=== PATIENT | female | born 1980 | race Caucasian/White ===

== ENCOUNTER 2016-07-23 09:19 | Emergency (ER) | payer OTHER ==
[~2016-07-23] VITALS: Ht 162.6 cm; Wt 119.3 kg
[~2016-07-23 09:19] MED LIST: AMLODIPINE BESYL5 MG PO; COZAAR100 MG PO; HYGROTON25 MG PO; IMITREX25 MG PO; KEFLEX500 MG PO; LABETALOL HCL200 MG PO; MEDROL DOSEPAK4 MG PO; NITROFURANTOIN100 MG PO; PERCOCET 5/31 TABLET PO; PREDNISONE20 MG PO; PROMETHAZINE HC25 M1 PO; REGLAN5 MG PO; SUMATRIPTAN SUC50 MG PO; TOPAMAX100 MG PO; TYLENOL EXTRA500 MG PO; VICODIN 5-3001 EACH PO; ZOFRAN ODT8 MG PO; ZOFRAN4 MG PO
[2016-07-23 10:11] LABS: EOSINOPHIL (%) 3.1 % (0-5); EOSINOPHIL COUNT 0.3 K/uL (0-0.3); HEMATOCRIT 39.9 % (36.0-46.0); IMMATURE GRANULOCYTE (%) 0.2 % (0.0-0.7); IMMATURE GRANULOCYTE COUNT 0.2 K/uL; LYMPHOCYTE COUNT 3.1 K/uL (1.0-2.8); MCHC 34.8 G/DL (30.0-36.0); MCV 86.2 FL (83-99); MEAN PLAT.VOLUME 9.5 uM^3 (9.5-12.4); MONOCYTE (%) 5.4 % (3-12); MONOCYTE COUNT 0.6 K/uL (0-0.8); NEUTROPHIL (%) 62.8 % (45-76); NEUTROPHIL COUNT 6.9 K/uL (1.8-6.4); PLATELET COUNT 384 K/uL (156-360); RBC DIS.WIDTH-CV 12.8 % (11.8-14.6); RBC DIS.WIDTH-SD 38.8 % (39-53); RED BLOOD COUNT 4.63 M/uL (3.80-5.20)
[2016-07-23 11:03] LABS: CHLORIDE 107 mEq/L (99-109); POTASSIUM 3.3 mEq/L (3.7-5.4); SODIUM 139 mEq/L (136-147)
[2016-07-23 11:05] LABS: GLUCOSE 137 mg/dL (70-99)
[2016-07-23 11:07] LABS: ANION GAP 11 MEQ/L (2-14)
[2016-07-23 11:09] LABS: GFR ESTIMATE (CALCULATED) > 59 mL/min/
[2016-07-23 11:10] LABS: UREA NITROGEN (BUN) 9 mg/dL (9-23)
[2016-07-23 11:17] LABS: QUANTITATIVE HCG < 4.0 MIU/ML
[2016-07-23 11:56] LABS: ADD MIUA? YES; BILIRUBIN NEGATIVE; BLOOD MODERATE; GLUCOSE (STRIP) NEGATIVE; KETONES NEGATIVE; LEUKOCYTES NEGATIVE; NITRITE NEGATIVE; PH, URINE 6.5 (5-8); PROTEIN (STRIP) 30; SPECIFIC GRAVITY 1.012 (1.000-1.030); UROBILINOGEN 0.2 MG/DL (0.2-1.0)
[2016-07-23 11:57] LABS: COLOR LT YELLOW ((YELLOW))
[2016-07-23 12:11] LABS: BACTERIA 2+; CASTS NONE SEEN /LPF; CRYSTALS NONE SEEN; EPITHELIAL CELLS 1+; MUCUS NONE SEEN; PATHOLOGICAL CAST NONE SEEN; SMALL ROUND CELL NONE SEEN; UCUL ADDED? YES; YEAST-LIKE CELL NONE SEEN
[2016-07-23] MEDS ORDERED: TYLENOL WITH C1 EACH PO (12:35)
[2016-07-23 12:54] VITALS: BP 158/98
== END 2016-07-23 12:56 | disposition home or self-care (01) ==
LOC: EME 09:19
PROVIDERS: Emergency Medicine
DX: N83.202 Unspecified ovarian cyst, left side (principal); I10 Essential (primary) hypertension; G43.909 Migraine, unspecified, not intractable, without status migrainosus; Z91.14 Patient's other noncompliance with medication regimen; Z87.442 Personal history of urinary calculi; Z87.891 Personal history of nicotine dependence
CPT/HCPCS: 76856; 80048; 81003; 84702; 85025; 87086; 99281; 99285; J1885; J2765; J7030

== ENCOUNTER 2016-10-15 01:32 | Inpatient (IN) | payer OTHER ==
[~2016-10-15] VITALS: Ht 162.6 cm; Wt 113.9 kg
[~2016-10-15 01:32] MED LIST changes: +TYLENOL WITH C1 EACH PO
[2016-10-15 02:16] LABS: HEMATOCRIT 36.2 % (36.0-46.0); MCHC 35.1 G/DL (30.0-36.0); MCV 85.6 FL (83-99); MEAN PLAT.VOLUME 8.8 uM^3 (9.5-12.4); PLATELET COUNT 315 K/uL (156-360); RBC DIS.WIDTH-CV 13.2 % (11.8-14.6); RBC DIS.WIDTH-SD 39.8 % (39-53); RED BLOOD COUNT 4.23 M/uL (3.80-5.20); WHITE BLOOD COUNT 10.1 K/uL (4.1-10.2)
[2016-10-15 02:24] LABS: CHLORIDE 103 mEq/L (99-109); POTASSIUM 2.8 mEq/L (3.7-5.4); SODIUM 137 mEq/L (136-147)
[2016-10-15 02:26] LABS: GLUCOSE 184 mg/dL (70-99)
[2016-10-15 02:27] LABS: ANION GAP 10 MEQ/L (2-14)
[2016-10-15 02:30] LABS: GFR ESTIMATE (CALCULATED) > 59 mL/min/; UREA NITROGEN (BUN) 17 mg/dL (9-23)
[2016-10-15 02:53] LABS: ERTH.SED.RATE 22 MM/HR (0-20)
[2016-10-15 03:00] LABS: TOTAL BILIRUBIN 0.4 mg/dL (0.0-1.0)
[2016-10-15 03:01] LABS: ALKALINE PHOSPHATASE 63 IU/L (3-129)
[2016-10-15 03:03] LABS: DIRECT BILIRUBIN 0.1 mg/dL (0.0-0.3)
[2016-10-15 03:04] LABS: LIPASE 55 U/L (1.0-51.0)
[2016-10-15 03:10] LABS: TROP-I INTERPRETATION NEGATIVE; TROPONIN-I < 0.01 ng/mL (0.0-0.30)
[2016-10-15 04:57] LABS: ADD MIUA? YES; BILIRUBIN NEGATIVE; BLOOD NEGATIVE; COLOR YELLOW ((YELLOW)); GLUCOSE (STRIP) 50; KETONES NEGATIVE; LEUKOCYTES NEGATIVE; NITRITE NEGATIVE; PROTEIN (STRIP) 100; SPECIFIC GRAVITY 1.016 (1.000-1.030); UROBILINOGEN 0.2 MG/DL (0.2-1.0)
[2016-10-15 05:05] LABS: BACTERIA RARE /HPF; EPITHELIAL CELLS 2+ /HPF; MUCUS TRACE /LPF; RED BLOOD CELLS 0-5 /HPF (0-5); UCUL ADDED? NO; WHITE BLOOD CELLS 0-5 /HPF (0-5)
[2016-10-15] MEDS ORDERED: LEXAPRO10 MG PO (05:08)
[2016-10-15] MEDS ORDERED: LOSARTAN POTAS100 MG PO (05:09)
[2016-10-15 05:37] LABS: MAGNESIUM 1.7 mg/dL (1.3-2.7)
[2016-10-15 07:30] VITALS: BP 174/104
[2016-10-15 08:17] LABS: POTASSIUM 3.1 mEq/L (3.7-5.4)
[2016-10-15] MEDS ORDERED: LABETALOL HCL100 MG PO (08:44)
[2016-10-15 10:34] LABS: Estimated Average Glucose 131 mg/dL (70-123); HEMOGLOBIN A1c (GLYCOHEMOGLOB) 6.2 % HGB (Below 5.7)
[2016-10-15 12:00] VITALS: BP 189/105
[2016-10-15 13:22] VITALS: BP 141/62
[2016-10-15 19:15] VITALS: BP 188/98
[2016-10-15 20:51] LABS: POINT-OF-CARE METER ID UU14174216
[2016-10-16 00:05] VITALS: BP 211/105
[2016-10-16 02:25] VITALS: BP 181/105
[2016-10-16 04:55] VITALS: BP 188/105
[2016-10-16 06:42] LABS: HEMATOCRIT 38.6 % (36.0-46.0); MCH 29.4 PG (29.0-34.0); MCHC 33.7 G/DL (30.0-36.0); MCV 87.3 FL (83-99); MEAN PLAT.VOLUME 9.1 uM^3 (9.5-12.4); PLATELET COUNT 363 K/uL (156-360); RBC DIS.WIDTH-CV 13.8 % (11.8-14.6); RBC DIS.WIDTH-SD 42.2 % (39-53); RED BLOOD COUNT 4.42 M/uL (3.80-5.20)
[2016-10-16 06:46] LABS: WHITE BLOOD COUNT 13.9 K/uL (4.1-10.2)
[2016-10-16 07:06] LABS: ANION GAP 12 MEQ/L (2-14); CHLORIDE 105 MEQ/L (99-109); GFR ESTIMATE (CALCULATED) > 59 mL/min/; GLUCOSE 182 mg/dL (70-99); SAMPLE HEMOLYSIS CHECK 0; SAMPLE ICTERIC CHECK 0; SAMPLE LIPEMIA CHECK 0; SODIUM 139 MEQ/L (136-147); UREA NITROGEN (BUN) 13 mg/dL (9-23)
[2016-10-16 07:09] LABS: POTASSIUM 4.1 MEQ/L (3.7-5.4)
[2016-10-16 07:42] LABS: POINT-OF-CARE METER ID UU13113781
[2016-10-16 08:05] VITALS: BP 171/93
[2016-10-16 11:15] VITALS: BP 169/85
[2016-10-16 11:25] LABS: POINT-OF-CARE METER ID UU13113781
[2016-10-16 13:56] VITALS: BP 158/80
[2016-10-16] MEDS ORDERED: NORVASC5 MG PO (14:32)
[2016-10-16] MEDS ORDERED: SUMATRIPTAN SU100 MG PO (14:32)
[2016-10-16] MEDS ORDERED: DIVALPROEX SOD500 MG PO (14:40)
== END 2016-10-16 15:25 | disposition home or self-care (01) | DRG 305 ==
LOC: EME 01:32 → EDOF 04:34 → 4EAST 07:07
PROVIDERS: Emergency Medicine; Hospitalist; Internal Medicine; Nurse Practitioner Family; Physician Assistant Medical
DX: I16.0 Hypertensive urgency (principal); E87.6 Hypokalemia; G43.909 Migraine, unspecified, not intractable, without status migrainosus; I10 Essential (primary) hypertension; J45.909 Unspecified asthma, uncomplicated; E66.01 Morbid (severe) obesity due to excess calories; R73.9 Hyperglycemia, unspecified; F41.9 Anxiety disorder, unspecified; F32.9 Major depressive disorder, single episode, unspecified; Z87.891 Personal history of nicotine dependence; Z68.41 Body mass index [BMI] 40.0-44.9, adult; Z91.14 Patient's other noncompliance with medication regimen
CPT/HCPCS: 70450; 76770; 80048; 80076; 81003; 82088 90; 82533 91; 82948; 83036; 83690; 83735; 84132 91; 84244 90; 84443; 84484; 85027; 85651; 86038; 86140; 93005; 93975; 99281; 99284; J0360; J1200; J1815; J1885; J2270; J2765; J2930

== ENCOUNTER 2017-07-06 11:46 | Emergency (ER) | payer OTHER ==
[~2017-07-06] VITALS: Ht 162.6 cm; Wt 110.0 kg
[~2017-07-06 11:46] MED LIST changes: +DIVALPROEX SOD500 MG PO; +LABETALOL HCL100 MG PO; +LEXAPRO10 MG PO; +LOSARTAN POTAS100 MG PO; +NORVASC5 MG PO; +SUMATRIPTAN SU100 MG PO
[2017-07-06] MEDS ORDERED: NORVASC5 MG PO (14:06)
[2017-07-06 14:13] VITALS: BP 220/103
== END 2017-07-06 14:14 | disposition home or self-care (01) ==
LOC: EME 11:46
DX: G43.909 Migraine, unspecified, not intractable, without status migrainosus (principal); I10 Essential (primary) hypertension; Z87.442 Personal history of urinary calculi; Z90.49 Acquired absence of other specified parts of digestive tract; F17.200 Nicotine dependence, unspecified, uncomplicated
CPT/HCPCS: 70450; 80048; 85027; 99281; 99284; J0780; J1200; J1885; J7030

== ENCOUNTER 2017-12-17 23:54 | Emergency (ER) | payer OTHER ==
[~2017-12-17] VITALS: Ht 162.6 cm; Wt 113.8 kg
[2017-12-18 00:29] LABS: HEMATOCRIT 34.2 % (36.0-46.0); HEMOGLOBIN 11.8 G/DL (11.9-15.5); MCHC 34.5 G/DL (30.0-36.0); PLATELET COUNT 306 K/uL (156-360); RBC DIS.WIDTH-CV 12.6 % (11.8-14.6); RBC DIS.WIDTH-SD 39.9 % (39-53); RED BLOOD COUNT 3.93 M/uL (3.80-5.20)
[2017-12-18 00:39] LABS: CHLORIDE 106 mEq/L (99-109); POTASSIUM 3.8 mEq/L (3.7-5.4); SODIUM 139 mEq/L (136-147)
[2017-12-18 00:40] LABS: GLUCOSE 163 mg/dL (70-99)
[2017-12-18 00:44] LABS: CREATININE 1.3 mg/dL (0.6-1.3); GFR ESTIMATE (CALCULATED) 49 mL/min/
[2017-12-18 00:45] LABS: UREA NITROGEN (BUN) 12 mg/dL (9-23)
[2017-12-18 00:48] LABS: D-DIMER ELISA < 150.00 ng/mLDDU (<230)
[2017-12-18 00:52] LABS: TROP-I INTERPRETATION NEGATIVE; TROPONIN-I < 0.01 ng/mL (0.0-0.30)
[2017-12-18] MEDS ORDERED: MEDROL DOSEPAK4 MG PO (02:08)
[2017-12-18 02:19] VITALS: BP 139/87
== END 2017-12-18 02:24 | disposition home or self-care (01) ==
LOC: EME 23:54
PROVIDERS: Emergency Medicine
DX: M54.12 Radiculopathy, cervical region (principal); R06.02 Shortness of breath; R07.9 Chest pain, unspecified; R11.0 Nausea; I10 Essential (primary) hypertension; Z90.49 Acquired absence of other specified parts of digestive tract; Z87.442 Personal history of urinary calculi; F17.200 Nicotine dependence, unspecified, uncomplicated
CPT/HCPCS: 71046; 80048; 84484; 85027; 85379; 93005; 94640; 99281; 99285